=== PATIENT | male | born 1995 | race Hispanic/Latino ===

== ENCOUNTER 2021-12-27 10:50 | Emergency (ER) | payer SELFPAY ==
--- NOTE | ~2021-12-27 | XR_ITS ---
EXAMINATION: XR hand RT min 3V INDICATION: Crush injury to the right thumb TECHNIQUE: Three views of the right hand are obtained. COMPARISON: None available FINDINGS: Bone alignment is normal. There is no fracture. There appears to be a laceration involving the tuft of the first finger. The joint spaces are normal. IMPRESSION: 1. No acute osseous abnormality. Reviewed, dictated and finalized at location A.
[2021-12-27 11:05] VITALS: BP 137/72; PULSE 50; RESP 18; TEMP 36.9; O2SAT 97
--- NOTE | 2021-12-27 11:07 | ED.WOUNDLAC ---
HPI - Wound/Laceration General Chief Complaint: Wound/Laceration Stated Complaint: right thumb lac Time Seen by Provider: 12/27/21 11:01 History of Present Illness HPI narrative: 26-year-old [place]ian-speaking male presents to the emergency room for evaluation of a right thumb injury. 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 Unknown tetanus status. Related Data Allergies Allergy/AdvReac Type Severity Reaction Status Date / Time No Known Allergies Allergy Verified 12/27/21 11:08 Review of Systems Review of Systems: CONSTITUTIONAL: Denies fever, chills, or sweats. EYES: Denies visual changes, redness, or discharge. ENT: Denies rhinorrhea, congestion, sore throat, or otalgia. CARDIOVASCULAR: Denies chest pain, palpitations, or edema. RESPIRATORY: Denies cough or dyspnea. GASTROINTESTINAL: Denies abdominal pain, nausea, vomiting, or diarrhea. GENITOURINARY: Denies dysuria or hematuria. SKIN: Reports laceration to right thumb MUSCULOSKELETAL: Reports crush injury to right thumb NEUROLOGIC: Denies headache, numbness, dizziness, or weakness. PSYCHIATRIC: Denies anxiety or depression. Exam Narrative: GENERAL: Well-appearing, well-nourished, no physical limitations, and in no acute distress. HEAD: Normocephalic, atraumatic. EYES: Conjunctivae normal, PERRLA and EOMI. CHEST: Clear to auscultation. No respiratory distress. No wheezes rales or rhonchi. HEART: Regular rate and rhythm. No murmur heard. Normal peripheral pulses. EXTREMITIES: Normal range of motion. No edema. No clubbing or cyanosis SKIN: irregular laceration to pad of right thumb NEURO: No focal deficits. Alert and oriented x3. MAEW. CN's II-XI intact bilaterally, normal gait PSYCH: Cooperative. Normal mood and affect. Course Vital Signs Vital signs: Vital Signs Temperature 36.9 C 12/27/21 11:05 Pulse Rate 50 L 12/27/21 11:05 Respiratory Rate 18 12/27/21 11:05 Blood Pressure 137/72 12/27/21 11:05 Pulse Oximetry 97 12/27/21 11:05 Oxygen Delivery Room Air 12/27/21 11:05 Temperature 36.9 C 12/27/21 11:05 Pulse Rate 50 L 12/27/21 11:05 Respiratory Rate 18 12/27/21 11:05 Blood Pressure 137/72 12/27/21 11:05 Pulse Oximetry 97 12/27/21 11:05 Oxygen Delivery Room Air 12/27/21 11:05 Procedures Laceration Laceration 1: Date: 12/27/21 Time: 13:31 Site: hand Side (If applicable): right Size (cm): 5 Description: irregular Depth: simple, single layer Local Anesthetic: lidocaine 1% Amount of anesthesia used (mL): 8 Pre-repair: wound explored, irrigated and irrigated extensively ====== Skin Level ====== Skin layer closed with: nylon Size (cm): 4-0 Number of sutures: 11 Technique: simple, interrupted ====== Subcutaneous Layer ====== ====== Muscle Layer ====== ====== Tendon Layer ====== Discharge Plan Discharge Clinical Impression: Laceration Patient Disposition: Home, Self-Care Condition: Stable Instructions: Antibiotic Form, Care For Your Stitches (ED), Laceration (ED) Additional Instructions: Sutures come out in 11 days. Monitor for signs of infection which include redness, swelling, purulent discharge and increased pain. Keep wound clean and dry and covered. 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
[2021-12-27] MEDS: TETANUS,DIPHTHERIA,AC PERTUSSIS ADULT (0.5 ML) BOOSTRIX IM (11:12)
[2021-12-27 13:46] VITALS: BP 130/62; PULSE 78; RESP 18; O2SAT 99
== END 2021-12-27 13:47 | disposition home or self-care (01) ==
PROVIDERS: Emergency Provider Nurse Practitioner Family
DX: S61.011A Laceration without foreign body of right thumb without damage to nail, initial encounter (principal); Z23 Encounter for immunization; W23.1XXA Caught, crushed, jammed, or pinched between stationary objects, initial encounter
CPT/HCPCS: 12002; 73130; 90471; 90715; 99283